=== PATIENT | female | born 1970 | race Hispanic/Latino ===

== ENCOUNTER → 2024-05-06 | Outpatient (CLI) | payer BC | END | disposition home or self-care (01) | LOC: RAH 16:36 | PROVIDERS: ATTEND Internal Medicine | DX: M79.631 Pain in right forearm (principal); M25.531 Pain in right wrist; M25.532 Pain in left wrist; M25.562 Pain in left knee | CPT/HCPCS: 73090; 73100; 73130; 73562 ==

== ENCOUNTER → 2024-08-05 | Outpatient (CLI) | payer BC ==
--- NOTE | 2024-08-05 10:42 | HMCIMG ---
NM GASTRIC EMPTYING STUDY REASON: ABDOMINAL DISTENSION COMPARISON: None TECHNIQUE: Routine imaging protocol was performed following ingestion of 1.5 mCi technetium 99m soft colloid mixed with 2 scrambled eggs. FINDINGS: Time activity curve reveals a T1 half of 34 minutes, within normal limits. Upper limit of normal is 90 minutes. There was no reflux during the exam. IMPRESSION: 1. Normal gastric emptying exam, the T1 half is 34 minutes.
== END | disposition home or self-care (01) ==
LOC: RAH 07:03
PROVIDERS: ATTEND Internal Medicine Gastroenterology
DX: R14.0 Abdominal distension (gaseous) (principal)
CPT/HCPCS: 78264; A9541

== ENCOUNTER → 2025-03-22 | Outpatient (CLI) | payer BC ==
--- NOTE | 2025-03-22 18:12 | HMCIMG ---
EXAM: CT Abdomen and Pelvis Without Intravenous Contrast CLINICAL HISTORY: 54 year old female with a history of umbilical hernia without obstruction or gangrene. TECHNIQUE: Axial computed tomography images of the abdomen and pelvis without intravenous contrast. Dose reduction technique was used including one or more of the following: automated exposure control, adjustment of mA and kV according to patient size, and/or iterative reconstruction. CONTRAST: NONE COMPARISON: None provided. FINDINGS: LUNG BASES: No basilar airspace consolidation or pleural effusion. LIVER: Fatty liver. GALLBLADDER AND BILE DUCTS: Unremarkable. No calcified stone. No ductal dilation. PANCREAS: Unremarkable. SPLEEN: Unremarkable. ADRENAL GLANDS: Unremarkable. KIDNEYS, URETERS, AND BLADDER: No obstructive uropathy. No hydronephrosis or nephrolithiasis. No ureteral or bladder calculi. STOMACH AND BOWEL: No obstruction. No wall thickening. No CT evidence of colitis or acute diverticulitis. APPENDIX: Normal appendix evaluation. No CT evidence for appendicitis. PERITONEUM: No free fluid. No free air. LYMPH NODES: No lymphadenopathy. REPRODUCTIVE: Unremarkable as visualized. VASCULATURE: No aortic aneurysm. ABDOMINAL WALL AND SOFT TISSUES: Unremarkable. BONES: No fracture or suspicious osseous abnormality. IMPRESSION: 1. No acute intra-abdominal or pelvic abnormality related to the history of umbilical hernia. /Alicia
== END | disposition home or self-care (01) ==
LOC: RAH 03-19 10:48
PROVIDERS: ATTEND Internal Medicine
DX: K76.0 Fatty (change of) liver, not elsewhere classified (principal); K42.9 Umbilical hernia without obstruction or gangrene
CPT/HCPCS: 74176